=== PATIENT | female | born 1970 | race Caucasian/White ===

== ENCOUNTER → 2017-02-08 | Outpatient (CLI) | payer OTHER ==
--- NOTE | ~2017-02-08 | US5 ---
[facility] A Service of [facility] RADIOLOGY TEXT RESULTS PATIENT: MICHAEL BEASLEY LOCATION: [facility] : [birth year] UNIT #: [id number] AGE: [address]: Cruz Hancock MD SEX: F ORDER DR: [id number] [address] [address] [id number] MR#: [id number] Acc #: [id number] NAME: MICHAEL BEASLEY : 1970 SEX: F STUDY DATE/TIME: 02/08/2017 9:46 UNIT: [id number] ROOM: STUDY DESCRIPTION: US Abdominal Complete Attending Physician: Cruz Hancock M.D. Ordering Physician: Cruz Hancock M.D. Primary Care Physician: Cruz Hancock M.D. MEDICAL IMAGING REPORT This report is preliminary unless electronic signature is present. EXAM Abdominal ultrasound INDICATIONS Generalized abdominal pain beginning 1 month ago. PROCEDURE Brar-scale and Doppler imaging of the abdomen. COMPARISON None FINDINGS Visualized portions of pancreas are unremarkable. Majority is obscured by bowel gas. Liver measures 15.2 cm. No liver mass on submitted images. Common duct measures 2 mm. Unremarkable gallbladder. Right kidney measures 10.8 cm. No hydronephrosis. Spleen measures 9.5 cm, left kidney measures 10.7 cm. The submitted images of abdominal aorta and inferior vena cava unremarkable. There is a heterogeneously hypoechoic mass in the lower abdomen/pelvis measuring approximately 14.0 x 9.4 cm. Not included on this study but favored to represent an enlarged uterus, possibly with a large fibroid. IMPRESSION 1. Only partially included but probably enlarged uterus likely with the large dominant fibroid. It measures up to 14 cm on this study but is not well evaluated. 2. Otherwise no acute findings are seen in the abdomen. 1. Dictated by... Fernando Beltre M.D. [facility] A Service of [facility] RADIOLOGY TEXT RESULTS PATIENT: MICHAEL BEASLEY LOCATION: [facility] : [birth year] UNIT #: [id number] AGE: [address]: Cruz Hancock MD SEX: F ORDER DR: THIS IS AN ELECTRONICALLY VERIFIED REPORT Fernando Beltre M.D. at 02/10/2017 7:05 AM Jayson TD: 02/09/2017 08:06 JOB #: [id number] MEDICAL IMAGING REPORT
== END | disposition home or self-care (01) ==
LOC: SGUS 07:37
DX: R10.9 Unspecified abdominal pain (principal)
CPT/HCPCS: 76700